=== PATIENT | female | born 1940 | race Caucasian/White ===

== ENCOUNTER 2025-01-03 10:10 | Outpatient (CLI) | payer MEDICARE ==
[2025-01-03 11:07] VITALS: PULSE 68; RESP 16; O2SAT 96
== END 2025-01-03 23:59 | disposition home or self-care (01) ==
LOC: RT 10:10
PROVIDERS: ATTEND Physician Assistant
DX: R06.09 Other forms of dyspnea (principal)
CPT/HCPCS: 94010; 94760

== ENCOUNTER 2025-04-24 12:09 | Outpatient (CLI) | payer MEDICARE ==
--- NOTE | 2025-04-24 13:09 | RADIOLOGY REPORT ---
EXAM: DI KNEE, COMP 4 VW MIN CLINICAL INDICATION: LEFT KNEE PAIN TECHNIQUE: DI KNEE, COMP 4 VW MIN Comparison: None FINDINGS/IMPRESSION: There is no evidence of acute fracture or dislocation. Left total knee arthroplasty. The alignment is anatomical. There is no radiopaque foreign body.
--- NOTE | 2025-04-24 19:05 | RADIOLOGY REPORT ---
EXAM: CT CT CHEST INDICATION: DYSPNEA ON EXERTION/ CHRONIC COUGH TECHNIQUE: Noncontrast axial images of the chest have been obtained along with coronal and sagittal r eformatted images. All CT scans at this facility use dose modulation, iterative reconstruction, and/o r weight based dosing when appropriate to reduce radiation dose to as low as reasonably achievable. COMPARISON: None FINDINGS: LOWER NECK: Unremarkable LYMPH NODES/MEDIASTINUM: No abnormal lymph nodes by CT size criteria CARDIOVASCULAR: Normal cardiac size. No pericardial effusion. No aneurysmal dilatation of the great v essels. Coronary artery calcifications. UPPER ABDOMEN: Significant heterogeneous solid-appearing exophytic mass along the right upper kidney measuring 4.6 x 4 cm, incompletely characterized without contrast. Right renal prominent sinus cysts versus less likely hydronephrosis. Proteinaceous cysts of the right MUSCULOSKELETAL: No acute fracture or aggressive focal osseous lesion. Multilevel degenerative change of the visualized spine. Prior healed right posterior rib fracture. CHEST WALL: Unremarkable. LUNG PARENCHYMA/PLEURAL SPACE: No pleural effusion or pneumothorax. No consolidation, suspicious foca l airspace opacity, or suspicious nodules. Small possible fat containing right Bochdalek's hernia. IMPRESSION: 1. No CT evidence of an acute intrathoracic process. 2. Coronary artery disease. Normal cardiac size. 3. Significant heterogeneous solid-appearing exophytic mass along the right upper kidney measuring 4. 6 x 4 cm, incompletely characterized without contrast. Recommend further evaluation with CT abdomen p sp kidney protocol.
== END 2025-04-24 23:59 | disposition home or self-care (01) ==
LOC: RAD 12:09
PROVIDERS: ATTEND Physician Assistant
DX: R05.3 Chronic cough (principal); N28.89 Other specified disorders of kidney and ureter; R06.09 Other forms of dyspnea; M25.562 Pain in left knee; Z96.652 Presence of left artificial knee joint; I25.10 Atherosclerotic heart disease of native coronary artery without angina pectoris
CPT/HCPCS: 71250; 73564